=== PATIENT | female | born 1955 | race Caucasian/White ===

== ENCOUNTER 2022-04-25 06:25 | Inpatient (IN) | payer BC ==
[2022-04-25] MEDS ORDERED: Dexamethasone 10 MG/ML VIAL ONE (06:44)
[2022-04-25] MEDS ORDERED: Ondansetron PF 4 MG/2 ML Vial ONE ×2 (06:45→08:52)
[2022-04-25 06:47] LABS: #Eosinphils 0.1 10x3/uL (0.0-0.5); #Monocytes 0.9 10x3/uL (0.0-1.1); #Neutrophils 6.9 10x3/uL (1.5-8.4); %Basophils 0.4 % (0.0-2.0); %Eosinophils 0.7 % (0.0-6.0); %Lymphocytes 15.6 % (18.0-47.0); %Monocytes 9.8 % (0.0-10.0); %Neutrophils 73.2 % (40.0-75.0); Hemoglobin 15.7 g/dL (12.0-15.5); Mean Corpuscular HGB CONC 34.1 g/dL (32.0-36.0); Mean Corpuscular Hemoglobin 26.7 pg (27.0-33.0); Mean Corpuscular Volume 78.1 fl (81.6-98.3); Mean Platelet Volume 9.2 fl (7.4-10.4); Platelet Count 243 10x3/uL (150-450); RBC Distribution Width 15.2 % (11.5-14.5); Red Blood Cell (RBC) Count 5.89 10x6/uL (3.90-5.03); White Blood Cell (WBC) Count 9.4 10x3/uL (3.5-10.5)
[2022-04-25 06:58] LABS: ALT (SGPT) 22 U/L (8-55); AST (SGOT) 24 U/L (5-34); Albumin 4.1 g/dL (3.4-4.8); Alkaline Phosphatase 79 U/L (40-110); Anion Gap 17 mmol/L (10-20); BUN (Urea Nitrogen) 7 mg/dL (9.8-20.1); Bilirubin, Total 0.4 mg/dL (0.2-1.2); Calc. Creatinine Clearance 0 mL/min (70-130); Calcium 9.1 mg/dL (7.8-10.44); Carbon Dioxide 27 mmol/L (23-31); Chloride 86 mmol/L (98-107); Estimated GFR 102; Globulin 2.8 g/dL (2.4-3.5); Glucose 142 mg/dL (80-115); Potassium 4.3 mmol/L (3.5-5.1); Protein, Total 6.9 g/dL (5.8-8.1); Sodium 126 mmol/L (136-145)
[2022-04-25 07:45] LABS: Actual Bicarbonate (HCO3v) 27 mEq/L (22-28); Base Excess -1.1 mEq/L (-2.0 to +3.0); Calcium, Ionized (venous) 1.11 mmol/L (1.16-1.32); Chloride (VBG) 88 mmol/L (98-106); Hemoglobin (Hb) 16.1 g/dL (11.7-16.0); Potassium (VBG) 4.06 mmol/L (3.70-5.30); Puncture Site Other Site; RapidComm Collect By LAB; pH (venous) 7.29 (7.32-7.43)
[2022-04-25] MEDS ORDERED: Albuterol Sulfate 2.5 mg/3 ml Neb ONE (07:52)
[2022-04-25] MEDS ORDERED: Iopamidol 370 76% 100 ML VIAL ONE (08:00)
[2022-04-25 08:08] LABS: SARS-CoV-2 NAA Rapid Test DETECTED (NotDetected)
[2022-04-25] MEDS ORDERED: Promethazine HCl 12.5 MG in Sodium Chloride 0.9% 50 ML IVPB PRN (08:21)
[2022-04-25] MEDS ORDERED: Sodium Chloride 0.9% 1,000 ML IV SCH (08:30)
[2022-04-25] MEDS ORDERED: Acetaminophen 500 MG TAB ONE (08:52)
[2022-04-25] MEDS ORDERED: Dexamethasone 10 MG in Sodium Chloride 0.9% 50 ML IVPB SCH (09:00)
[2022-04-25] MEDS ORDERED: Ventolin HFA Inhaler 60 PUFF INHALER INH PRN (14:29)
[2022-04-25] MEDS ORDERED: Pharmacy to Dose REMDESIVIR IVPB PRN (14:34)
[2022-04-25] MEDS: Ascorbic Acid 500 mg Chewable Tablet PO SCH (14:49)
[2022-04-25] MEDS: cefTRIAXone\\ROCEPHIN 1 GM in Sodium Chloride 0.9% 100 ML IVPB SCH (14:50)
[2022-04-25] MEDS: Cholecalciferol (Vitamin D3) 400 UNITS TAB PO SCH (14:51)
[2022-04-25] MEDS: Enoxaparin Sodium 40 MG/0.4 ML SYRINGE SC SCH (14:52)
[2022-04-25] MEDS: Nicotine 21 MG PATCH TD SCH (14:52)
[2022-04-25] MEDS: Zinc Sulfate 220 MG CAP PO SCH (14:54)
[2022-04-25 15:53] LABS: Anion Gap 14 mmol/L (10-20); BUN (Urea Nitrogen) 9 mg/dL (9.8-20.1); Calc. Creatinine Clearance 110 mL/min (70-130); Calcium 9.1 mg/dL (7.8-10.44); Carbon Dioxide 28 mmol/L (23-31); Chloride 85 mmol/L (98-107); Estimated GFR 101; Glucose 157 mg/dL (80-115); Potassium 4.3 mmol/L (3.5-5.1); Sodium 123 mmol/L (136-145)
[2022-04-25] MEDS: Ondansetron PF 4 MG/2 ML Vial IVP PRN (20:00)
[2022-04-25] MEDS ORDERED: REMDESIVIR 200 MG in Sodium Chloride 0.9% 250 ML 210 ML IV SCH (20:00)
[2022-04-25 20:27] LABS: Anion Gap 15 mmol/L (10-20); BUN (Urea Nitrogen) 9 mg/dL (9.8-20.1); Calc. Creatinine Clearance 119 mL/min (70-130); Calcium 9.2 mg/dL (7.8-10.44); Carbon Dioxide 30 mmol/L (23-31); Chloride 86 mmol/L (98-107); Estimated GFR 103; Glucose 137 mg/dL (80-115); Potassium 4.7 mmol/L (3.5-5.1); Sodium 126 mmol/L (136-145)
[2022-04-25] MEDS: Famotidine/PF 20 mg/2ml Vial SLOW IVP SCH (20:42)
[2022-04-25] MEDS: Doxycycline 100 MG CAP PO SCH (20:42)
[2022-04-25] MEDS: Dexamethasone 20 MG/5 ML VIAL SLOW IVP SCH (20:42)
[2022-04-25 21:53] LABS: Bilirubin Neg (Negative); Blood, Urine Negative (Negative); Clarity Clear (Clear); Glucose, Urine (Dipstick) Normal (Negative); Ketone, Urine Negative (Negative); Leukocyte Negative (Negative); Nitrite Negative (Negative); Protein, Urine (Dipstick) 15 mg/dl (Neg-Trace); Specific Gravity, Urine 1.015 (1.002-1.036); Urobilinogen Normal mg/dL (Less than 2)
[2022-04-25 21:55] LABS: Urine Culture Reflex No No
[2022-04-25 22:15] LABS: Bacteria/HPF 2+ HPF (None Seen); RBC/HPF 0-3 HPF (0-3); WBC/HPF 0-3 HPF (0-3); Yeast-Budding 2+ HPF (None Seen)
[2022-04-26 03:14] LABS: #Monocytes 0.3 10x3/uL (0.0-1.1); #Neutrophils 3.8 10x3/uL (1.5-8.4); %Basophils 0.2 % (0.0-2.0); %Lymphocytes 17.8 % (18.0-47.0); %Monocytes 6.3 % (0.0-10.0); %Neutrophils 75.5 % (40.0-75.0); Hemoglobin 15.4 g/dL (12.0-15.5); Mean Corpuscular HGB CONC 32.8 g/dL (32.0-36.0); Mean Corpuscular Hemoglobin 26.1 pg (27.0-33.0); Mean Corpuscular Volume 79.5 fl (81.6-98.3); Mean Platelet Volume 8.9 fl (7.4-10.4); Platelet Count 242 10x3/uL (150-450); RBC Distribution Width 15.6 % (11.5-14.5); Red Blood Cell (RBC) Count 5.91 10x6/uL (3.90-5.03); White Blood Cell (WBC) Count 5.1 10x3/uL (3.5-10.5)
[2022-04-26 03:41] LABS: ALT (SGPT) 23 U/L (8-55); AST (SGOT) 22 U/L (5-34); Albumin 4.1 g/dL (3.4-4.8); Alkaline Phosphatase 75 U/L (40-110); Anion Gap 16 mmol/L (10-20); BUN (Urea Nitrogen) 8 mg/dL (9.8-20.1); Bilirubin, Total 0.3 mg/dL (0.2-1.2); Calc. Creatinine Clearance 110 mL/min (70-130); Calcium 8.9 mg/dL (7.8-10.44); Carbon Dioxide 29 mmol/L (23-31); Chloride 86 mmol/L (98-107); Estimated GFR 101; Globulin 2.9 g/dL (2.4-3.5); Glucose 117 mg/dL (80-115); Sodium 126 mmol/L (136-145)
[2022-04-26] MEDS: Acetaminophen 325 MG TAB PO PRN ×4 (04:11→20:53)
[2022-04-26] MEDS: Dexamethasone 20 MG/5 ML VIAL SLOW IVP SCH (07:50)
[2022-04-26] MEDS: Famotidine/PF 20 mg/2ml Vial SLOW IVP SCH ×2 (07:51→20:21)
[2022-04-26] MEDS: Doxycycline 100 MG CAP PO SCH ×2 (07:53→20:21)
[2022-04-26] MEDS ORDERED: Sodium Chloride 0.65% Nasal 44 ML BOT EA NARE PRN (09:11)
[2022-04-26] MEDS ORDERED: Labetalol HCl 100 MG/20 ML VIAL SLOW IVP PRN (09:11)
[2022-04-26] MEDS ORDERED: Moisturizing Cream (Eucerin) 113 GM JAR TOP PRN (09:11)
[2022-04-26] MEDS ORDERED: Artificial Tear Sol 15 ML BOT EA EYE PRN (09:11)
[2022-04-26] MEDS ORDERED: hydrALAZINE 20 MG/ML VIAL SLOW IVP PRN (09:11)
[2022-04-26] MEDS ORDERED: Sodium Chloride 0.9% 1,000 ML IV SCH (09:45)
[2022-04-26] MEDS: Lorazepam 0.5 MG TAB PO PRN (12:24)
[2022-04-26 12:28] LABS: Anion Gap 16 mmol/L (10-20); BUN (Urea Nitrogen) 13 mg/dL (9.8-20.1); Calc. Creatinine Clearance 114 mL/min (70-130); Calcium 9.1 mg/dL (7.8-10.44); Carbon Dioxide 28 mmol/L (23-31); Chloride 83 mmol/L (98-107); Estimated GFR 102; Glucose 125 mg/dL (80-115); Magnesium 1.7 mg/dL (1.6-2.6); Potassium 4.8 mmol/L (3.5-5.1); Sodium 122 mmol/L (136-145)
[2022-04-26 12:34] LABS: Phosphorus 2.8 mg/dL (2.3-4.7)
[2022-04-26] MEDS: Simethicone Chewable 80 MG TAB PO PRN (12:35)
[2022-04-26 13:01] LABS: Actual Bicarbonate (HCO3v) 26 mEq/L (22-28); Base Excess 2.2 mEq/L (-2.0 to +3.0); Calcium, Ionized (venous) 0.89 mmol/L (1.16-1.32); Chloride (VBG) 86 mmol/L (98-106); Hemoglobin (Hb) 16.5 g/dL (11.7-16.0); Potassium (VBG) 7.21 mmol/L (3.70-5.30); Puncture Site Other Site; RapidComm Collect By LAB TECH; Sodium 114.3 mmol/L (133-146); pH (venous) 7.45 (7.32-7.43)
[2022-04-26] MEDS: hydrALAZINE 20 MG/ML VIAL SLOW IVP PRN (13:42)
[2022-04-26 14:02] LABS: Actual Bicarbonate (HCO3a) 29.1 mEq/L (22-28); Base Excess (BEa) 1.7 mEq/L (-2.0 to +3.0); CO2 Tension 55.9 mmHg (35.0-45.0); Calcium, Ionized (arterial) 1.13 mmol/L (1.12-1.30); Carboxyhemoglobin (COHb) 0.7 gm% (0.0-3.0); Hemoglobin (Hb) 16.1 g/dL (12.0-16.0); Potassium - ABG Lab 4.6 mmol/L (3.70-5.30); Puncture Site RRA; pH, Arterial 7.33 (7.35-7.45)
[2022-04-26 14:04] LABS: ALV-art Gradient 140.325 mmHg (0-20)
[2022-04-26] MEDS: Cholecalciferol (Vitamin D3) 400 UNITS TAB PO SCH (14:21)
[2022-04-26] MEDS: Ascorbic Acid 500 mg Chewable Tablet PO SCH (14:21)
[2022-04-26] MEDS: Zinc Sulfate 220 MG CAP PO SCH (14:26)
[2022-04-26] MEDS: Nicotine 21 MG PATCH TD SCH (14:26)
[2022-04-26] MEDS: Enoxaparin Sodium 40 MG/0.4 ML SYRINGE SC SCH (14:26)
[2022-04-26] MEDS ORDERED: Furosemide 20 MG/2 ML VIAL SLOW IVP SCH (14:30)
[2022-04-26] MEDS: cefTRIAXone\\ROCEPHIN 1 GM in Sodium Chloride 0.9% 100 ML IVPB SCH (14:32)
[2022-04-26] MEDS: Ventolin HFA Inhaler 60 PUFF INHALER INH SCH ×2 (14:35→19:01)
[2022-04-26 16:14] LABS: Legionella Urinary Ag Negative (Negative)
[2022-04-26] MEDS ORDERED: Amlodipine 5 MG TAB PO SCH (17:00)
[2022-04-26 18:01] LABS: Anion Gap 17 mmol/L (10-20); BUN (Urea Nitrogen) 16 mg/dL (9.8-20.1); Calc. Creatinine Clearance 112 mL/min (70-130); Carbon Dioxide 27 mmol/L (23-31); Chloride 82 mmol/L (98-107); Estimated GFR 102; Glucose 128 mg/dL (80-115); Potassium 4.6 mmol/L (3.5-5.1); Sodium 121 mmol/L (136-145)
[2022-04-26] MEDS: REMDESIVIR 100 MG in Sodium Chloride 0.9% 250 ML 230 ML IV SCH (20:21)
[2022-04-26] MEDS: Ventolin HFA Inhaler 60 PUFF INHALER INH PRN (22:55)
[2022-04-27 00:34] LABS: Anion Gap 14 mmol/L (10-20); BUN (Urea Nitrogen) 23 mg/dL (9.8-20.1); Calc. Creatinine Clearance 116 mL/min (70-130); Calcium 8.9 mg/dL (7.8-10.44); Carbon Dioxide 29 mmol/L (23-31); Chloride 82 mmol/L (98-107); Estimated GFR 103; Glucose 119 mg/dL (80-115); Potassium 4.3 mmol/L (3.5-5.1); Sodium 121 mmol/L (136-145)
[2022-04-27 03:44] LABS: Mean Corpuscular HGB CONC 33.1 g/dL (32.0-36.0); Mean Corpuscular Hemoglobin 26.2 pg (27.0-33.0); Mean Corpuscular Volume 79.2 fl (81.6-98.3); Mean Platelet Volume 9.1 fl (7.4-10.4); Platelet Count 287 10x3/uL (150-450); RBC Distribution Width 14.9 % (11.5-14.5); Red Blood Cell (RBC) Count 5.72 10x6/uL (3.90-5.03); White Blood Cell (WBC) Count 11.4 10x3/uL (3.5-10.5)
[2022-04-27 03:46] LABS: MDiff Complete? YES
[2022-04-27 04:10] LABS: ALT (SGPT) 24 U/L (8-55); AST (SGOT) 32 U/L (5-34); Albumin 3.8 g/dL (3.4-4.8); Alkaline Phosphatase 64 U/L (40-110); Anion Gap 18 mmol/L (10-20); BUN (Urea Nitrogen) 23 mg/dL (9.8-20.1); Bilirubin, Direct 0.1 mg/dL (0.1-0.3); Bilirubin, Total 0.3 mg/dL (0.2-1.2); Calc. Creatinine Clearance 108 mL/min (70-130); Calcium 8.8 mg/dL (7.8-10.44); Carbon Dioxide 26 mmol/L (23-31); Chloride 83 mmol/L (98-107); Estimated GFR 101; Glucose 87 mg/dL (80-115); Potassium 4.8 mmol/L (3.5-5.1); Protein, Total 6.8 g/dL (5.8-8.1); Sodium 122 mmol/L (136-145)
[2022-04-27 04:14] LABS: Platelet Morphology Comment Appears Adequate; RBC Morphology Normal
[2022-04-27 04:19] LABS: Band 7 % (5-11); Lymphocytes 20 % (21-51); Monocytes 16 % (0-10); Neutrophil 57 % (42-75)
[2022-04-27] MEDS: Acetaminophen 325 MG TAB PO PRN (06:19)
[2022-04-27] MEDS: Lorazepam 0.5 MG TAB PO PRN (06:19)
[2022-04-27] MEDS: Ventolin HFA Inhaler 60 PUFF INHALER INH SCH ×4 (06:37→19:22)
[2022-04-27] MEDS: Doxycycline 100 MG CAP PO SCH ×2 (07:56→20:51)
[2022-04-27] MEDS: Amlodipine 5 MG TAB PO SCH (07:56)
[2022-04-27] MEDS: Dexamethasone 20 MG/5 ML VIAL SLOW IVP SCH (07:57)
[2022-04-27] MEDS: Famotidine/PF 20 mg/2ml Vial SLOW IVP SCH ×2 (07:57→20:51)
[2022-04-27] MEDS: hydrALAZINE 20 MG/ML VIAL SLOW IVP PRN (08:48)
[2022-04-27] MEDS: HYDROcodone/Acetaminophen 5/325 mg Tablet PO PRN ×2 (09:48→20:50)
[2022-04-27] MEDS ORDERED: Dexmedetomidine In 0.9 % NaCl 100 ML IVPB SCH (11:00)
[2022-04-27] MEDS ORDERED: Sodium Chloride 3% 500 ML IVPB SCH ×2 (11:30→18:45)
[2022-04-27] MEDS ORDERED: Cefepime 1 GM in Sodium Chloride 0.9% 100 ML IVPB SCH (11:45)
[2022-04-27] MEDS: Cefepime 2 GM in Sodium Chloride 0.9% 100 ML IVPB SCH (12:08)
[2022-04-27 12:58] LABS: Strep pneumo Urine Ag NEGATIVE (NEGATIVE)
[2022-04-27] MEDS: Ascorbic Acid 500 mg Chewable Tablet PO SCH ×2 (15:01→15:35)
[2022-04-27] MEDS: Cholecalciferol (Vitamin D3) 400 UNITS TAB PO SCH ×2 (15:01→15:35)
[2022-04-27] MEDS: Zinc Sulfate 220 MG CAP PO SCH ×2 (15:01→15:35)
[2022-04-27] MEDS: Enoxaparin Sodium 40 MG/0.4 ML SYRINGE SC SCH (15:01)
[2022-04-27] MEDS: Nicotine 21 MG PATCH TD SCH (15:03)
[2022-04-27 15:48] LABS: Anion Gap 17 mmol/L (10-20); BUN (Urea Nitrogen) 22 mg/dL (9.8-20.1); Calc. Creatinine Clearance 122 mL/min (70-130); Calcium 8.8 mg/dL (7.8-10.44); Carbon Dioxide 25 mmol/L (23-31); Chloride 83 mmol/L (98-107); Estimated GFR 103; Glucose 121 mg/dL (80-115); Potassium 4.9 mmol/L (3.5-5.1); Sodium 120 mmol/L (136-145)
[2022-04-27 18:10] LABS: Anion Gap 24 mmol/L (10-20); BUN (Urea Nitrogen) 23 mg/dL (9.8-20.1); Calc. Creatinine Clearance 113 mL/min (70-130); Calcium 8.8 mg/dL (7.8-10.44); Carbon Dioxide 14 mmol/L (23-31); Chloride 86 mmol/L (98-107); Estimated GFR 101; Glucose 86 mg/dL (80-115)
[2022-04-27 18:13] LABS: Sodium 118 mmol/L (136-145)
[2022-04-27] MEDS: REMDESIVIR 100 MG in Sodium Chloride 0.9% 250 ML 230 ML IV SCH (20:50)
[2022-04-27] MEDS: Atorvastatin Calcium 10 MG TAB PO SCH (20:50)
[2022-04-27 22:00] LABS: Anion Gap 18 mmol/L (10-20); BUN (Urea Nitrogen) 21 mg/dL (9.8-20.1); Calc. Creatinine Clearance 117 mL/min (70-130); Calcium 8.8 mg/dL (7.8-10.44); Carbon Dioxide 27 mmol/L (23-31); Chloride 85 mmol/L (98-107); Estimated GFR 102; Glucose 82 mg/dL (80-115); Potassium 4.5 mmol/L (3.5-5.1); Sodium 125 mmol/L (136-145)
[2022-04-28] MEDS ORDERED: Sodium Chloride 0.9% 100 ML ONE (00:03)
[2022-04-28] MEDS ORDERED: Cefepime 2 GM VIAL ONE (00:03)
[2022-04-28] MEDS: Cefepime 2 GM in Sodium Chloride 0.9% 100 ML IVPB SCH ×2 (00:11→11:04)
[2022-04-28 03:42] LABS: Actual Bicarbonate (HCO3v) 29 mEq/L (22-28); Calcium, Ionized (venous) 1.01 mmol/L (1.16-1.32); Chloride (VBG) 90 mmol/L (98-106); Critical Notified Whom: ZOVAN; Potassium (VBG) 4.47 mmol/L (3.70-5.30); Puncture Site Other Site; Sodium 122.1 mmol/L (133-146); pH (venous) 7.44 (7.32-7.43)
[2022-04-28 03:43] LABS: Hemoglobin 15.1 g/dL (12.0-15.5); Mean Corpuscular Hemoglobin 26.1 pg (27.0-33.0); Mean Corpuscular Volume 79.2 fl (81.6-98.3); RBC Distribution Width 14.8 % (11.5-14.5); Red Blood Cell (RBC) Count 5.78 10x6/uL (3.90-5.03); White Blood Cell (WBC) Count 9.2 10x3/uL (3.5-10.5)
[2022-04-28 03:44] LABS: Mean Platelet Volume 8.9 fl (7.4-10.4); Platelet Count 305 10x3/uL (150-450)
[2022-04-28 03:47] LABS: MDiff Complete? YES; Manual Diff?? YES
[2022-04-28 04:05] LABS: CRP (Inflammatory) Less than 0.50 mg/dL (= or < 0.5); Phosphorus 2.8 mg/dL (2.3-4.7)
[2022-04-28 04:09] LABS: ALT (SGPT) 22 U/L (8-55); AST (SGOT) 25 U/L (5-34); Albumin 3.7 g/dL (3.4-4.8); Alkaline Phosphatase 66 U/L (40-110); Anion Gap 15 mmol/L (10-20); BUN (Urea Nitrogen) 23 mg/dL (9.8-20.1); Bilirubin, Direct 0.2 mg/dL (0.1-0.3); Bilirubin, Total 0.5 mg/dL (0.2-1.2); Calc. Creatinine Clearance 117 mL/min (70-130); Calcium 8.6 mg/dL (7.8-10.44); Carbon Dioxide 27 mmol/L (23-31); Chloride 89 mmol/L (98-107); Estimated GFR 102; Globulin 2.3 g/dL (2.4-3.5); Glucose 90 mg/dL (80-115); Potassium 4.8 mmol/L (3.5-5.1); Sodium 126 mmol/L (136-145)
[2022-04-28 04:12] LABS: Band 2 % (5-11); Lymphocytes 13 % (21-51); Monocytes 14 % (0-10); Neutrophil 64 % (42-75); Reactive Lymphocytes 6 % (0-10)
[2022-04-28 04:14] LABS: Platelet Morphology Comment Appears Adequate
[2022-04-28] MEDS: HYDROcodone/Acetaminophen 5/325 mg Tablet PO PRN ×3 (05:16→16:18)
[2022-04-28] MEDS: Ventolin HFA Inhaler 60 PUFF INHALER INH SCH ×4 (06:30→20:14)
[2022-04-28] MEDS: Amlodipine 5 MG TAB PO SCH (08:20)
[2022-04-28] MEDS: Famotidine/PF 20 mg/2ml Vial SLOW IVP SCH ×2 (08:21→20:40)
[2022-04-28] MEDS: Dexamethasone 20 MG/5 ML VIAL SLOW IVP SCH (08:21)
[2022-04-28] MEDS: Doxycycline 100 MG CAP PO SCH ×2 (09:01→20:39)
[2022-04-28] MEDS: Simethicone Chewable 80 MG TAB PO PRN (11:04)
[2022-04-28] MEDS: Lorazepam 1 MG TAB PO PRN (11:04)
[2022-04-28] MEDS: Cholecalciferol (Vitamin D3) 400 UNITS TAB PO SCH (14:48)
[2022-04-28] MEDS: Enoxaparin Sodium 40 MG/0.4 ML SYRINGE SC SCH (14:48)
[2022-04-28] MEDS: Ascorbic Acid 500 mg Chewable Tablet PO SCH (14:48)
[2022-04-28] MEDS: Zinc Sulfate 220 MG CAP PO SCH (14:48)
[2022-04-28] MEDS: Nicotine 21 MG PATCH TD SCH (14:50)
[2022-04-28] MEDS: REMDESIVIR 100 MG in Sodium Chloride 0.9% 250 ML 230 ML IV SCH (20:39)
[2022-04-28] MEDS: Atorvastatin Calcium 10 MG TAB PO SCH (20:39)
[2022-04-29] MEDS: Cefepime 2 GM in Sodium Chloride 0.9% 100 ML IVPB SCH ×2 (00:12→11:30)
[2022-04-29] MEDS: Lorazepam 1 MG TAB PO PRN ×4 (03:34→20:20)
[2022-04-29] MEDS: HYDROcodone/Acetaminophen 5/325 mg Tablet PO PRN ×3 (03:34→20:20)
[2022-04-29] MEDS: Simethicone Chewable 80 MG TAB PO PRN ×2 (04:13→08:48)
[2022-04-29 04:31] LABS: Hemoglobin 15.6 g/dL (12.0-15.5); Mean Corpuscular HGB CONC 32.4 g/dL (32.0-36.0); Mean Corpuscular Hemoglobin 26.1 pg (27.0-33.0); Mean Corpuscular Volume 80.6 fl (81.6-98.3); Mean Platelet Volume 8.8 fl (7.4-10.4); Platelet Count 330 10x3/uL (150-450); RBC Distribution Width 15.1 % (11.5-14.5); Red Blood Cell (RBC) Count 5.97 10x6/uL (3.90-5.03); White Blood Cell (WBC) Count 7.9 10x3/uL (3.5-10.5)
[2022-04-29 04:32] LABS: MDiff Complete? YES; Manual Diff?? YES
[2022-04-29 04:42] LABS: Actual Bicarbonate (HCO3v) 31 mEq/L (22-28); Base Excess 4.6 mEq/L (-2.0 to +3.0); Calcium, Ionized (venous) 1.08 mmol/L (1.16-1.32); Chloride (VBG) 92 mmol/L (98-106); Hemoglobin (Hb) 16.3 g/dL (11.7-16.0); Potassium (VBG) 3.98 mmol/L (3.70-5.30); Puncture Site Other Site; RapidComm Collect By LAB; Sodium 128.1 mmol/L (133-146); pH (venous) 7.39 (7.32-7.43)
[2022-04-29 04:50] LABS: ALT (SGPT) 22 U/L (8-55); AST (SGOT) 19 U/L (5-34); Albumin 3.7 g/dL (3.4-4.8); Alkaline Phosphatase 69 U/L (40-110); Anion Gap 13 mmol/L (10-20); BUN (Urea Nitrogen) 23 mg/dL (9.8-20.1); Bilirubin, Direct 0.3 mg/dL (0.1-0.3); Bilirubin, Total 0.6 mg/dL (0.2-1.2); Calc. Creatinine Clearance 104 mL/min (70-130); Calcium 8.8 mg/dL (7.8-10.44); Carbon Dioxide 30 mmol/L (23-31); Chloride 92 mmol/L (98-107); Estimated GFR 99; Globulin 2.3 g/dL (2.4-3.5); Glucose 103 mg/dL (80-115); Magnesium 2.1 mg/dL (1.6-2.6); Potassium 4.3 mmol/L (3.5-5.1); Sodium 131 mmol/L (136-145)
[2022-04-29 04:53] LABS: CRP (Inflammatory) Less than 0.50 mg/dL (= or < 0.5); Phosphorus 2.7 mg/dL (2.3-4.7)
[2022-04-29 05:08] LABS: Lymphocytes 21 % (21-51); Monocytes 21 % (0-10); Neutrophil 53 % (42-75); Reactive Lymphocytes 5 % (0-10)
[2022-04-29 05:09] LABS: Anisocytosis SLIGHT = 6-15 cells (100X) (0-5/hpf); Macrocytosis SLIGHT = 6-15 cells (100X) (0-5/hpf); Microcytosis SLIGHT = 6-15 cells (100X) (0-5/hpf); Platelet Morphology Comment Appears Adequate
[2022-04-29] MEDS: Ventolin HFA Inhaler 60 PUFF INHALER INH SCH ×4 (07:51→19:09)
[2022-04-29] MEDS: Doxycycline 100 MG CAP PO SCH ×2 (08:48→20:20)
[2022-04-29] MEDS: Amlodipine 5 MG TAB PO SCH (08:48)
[2022-04-29] MEDS: Dexamethasone 20 MG/5 ML VIAL SLOW IVP SCH (08:50)
[2022-04-29] MEDS: Famotidine/PF 20 mg/2ml Vial SLOW IVP SCH ×2 (08:50→20:18)
[2022-04-29] MEDS: Enoxaparin Sodium 40 MG/0.4 ML SYRINGE SC SCH (14:21)
[2022-04-29] MEDS: Nicotine 21 MG PATCH TD SCH (14:21)
[2022-04-29] MEDS: Ascorbic Acid 500 mg Chewable Tablet PO SCH (14:22)
[2022-04-29] MEDS: Cholecalciferol (Vitamin D3) 400 UNITS TAB PO SCH (14:22)
[2022-04-29] MEDS: Zinc Sulfate 220 MG CAP PO SCH (14:22)
[2022-04-29] MEDS: REMDESIVIR 100 MG in Sodium Chloride 0.9% 250 ML 230 ML IV SCH (20:19)
[2022-04-29] MEDS: Atorvastatin Calcium 10 MG TAB PO SCH (20:20)
[2022-04-30] MEDS: Cefepime 2 GM in Sodium Chloride 0.9% 100 ML IVPB SCH ×2 (00:14→12:14)
[2022-04-30 03:50] LABS: Actual Bicarbonate (HCO3v) 33 mEq/L (22-28); Base Excess 6.2 mEq/L (-2.0 to +3.0); Calcium, Ionized (venous) 1.06 mmol/L (1.16-1.32); Chloride (VBG) 93 mmol/L (98-106); Potassium (VBG) 4.66 mmol/L (3.70-5.30); Puncture Site Other Site; RapidComm Collect By CSUC. CNC; Sodium 127.1 mmol/L (133-146)
[2022-04-30 04:16] LABS: Hemoglobin 15.2 g/dL (12.0-15.5); Mean Corpuscular HGB CONC 32.8 g/dL (32.0-36.0); Mean Corpuscular Hemoglobin 26.1 pg (27.0-33.0); Mean Corpuscular Volume 79.7 fl (81.6-98.3); Mean Platelet Volume 8.4 fl (7.4-10.4); Platelet Count 344 10x3/uL (150-450); RBC Distribution Width 15.3 % (11.5-14.5); Red Blood Cell (RBC) Count 5.82 10x6/uL (3.90-5.03); White Blood Cell (WBC) Count 7.6 10x3/uL (3.5-10.5)
[2022-04-30 04:42] LABS: ALT (SGPT) 19 U/L (8-55); AST (SGOT) 16 U/L (5-34); Albumin 3.6 g/dL (3.4-4.8); Alkaline Phosphatase 64 U/L (40-110); Anion Gap 18 mmol/L (10-20); BUN (Urea Nitrogen) 24 mg/dL (9.8-20.1); Bilirubin, Total 0.6 mg/dL (0.2-1.2); Calc. Creatinine Clearance 115 mL/min (70-130); Calcium 8.7 mg/dL (7.8-10.44); Carbon Dioxide 27 mmol/L (23-31); Chloride 92 mmol/L (98-107); Estimated GFR 102; Globulin 2.4 g/dL (2.4-3.5); Glucose 91 mg/dL (80-115); Magnesium 2.1 mg/dL (1.6-2.6); Potassium 4.8 mmol/L (3.5-5.1); Sodium 132 mmol/L (136-145)
[2022-04-30 04:46] LABS: CRP (Inflammatory) Less than 0.50 mg/dL (= or < 0.5); Phosphorus 3.1 mg/dL (2.3-4.7)
[2022-04-30] MEDS: Lorazepam 1 MG TAB PO PRN ×4 (04:53→21:48)
[2022-04-30] MEDS: HYDROcodone/Acetaminophen 5/325 mg Tablet PO PRN ×4 (04:53→21:47)
[2022-04-30 06:11] LABS: MDiff Complete? YES; Manual Diff?? YES
[2022-04-30 07:14] LABS: Band 1 % (5-11); Lymphocytes 22 % (21-51); Monocytes 31 % (0-10); Neutrophil 40 % (42-75); Reactive Lymphocytes 6 % (0-10)
[2022-04-30] MEDS: Ventolin HFA Inhaler 60 PUFF INHALER INH SCH ×4 (07:14→19:48)
[2022-04-30 07:16] LABS: Anisocytosis SLIGHT = 6-15 cells (100X) (0-5/hpf); Platelet Morphology Comment Appears Adequate
[2022-04-30] MEDS: Dexamethasone 20 MG/5 ML VIAL SLOW IVP SCH (09:28)
[2022-04-30] MEDS: Doxycycline 100 MG CAP PO SCH ×2 (09:29→20:55)
[2022-04-30] MEDS: Famotidine/PF 20 mg/2ml Vial SLOW IVP SCH ×2 (09:29→20:54)
[2022-04-30] MEDS: Amlodipine 5 MG TAB PO SCH (09:29)
[2022-04-30] MEDS: Simethicone Chewable 80 MG TAB PO PRN (10:11)
[2022-04-30] MEDS: Enoxaparin Sodium 40 MG/0.4 ML SYRINGE SC SCH (15:20)
[2022-04-30] MEDS: Zinc Sulfate 220 MG CAP PO SCH (15:20)
[2022-04-30] MEDS: Ascorbic Acid 500 mg Chewable Tablet PO SCH (15:20)
[2022-04-30] MEDS: Cholecalciferol (Vitamin D3) 400 UNITS TAB PO SCH (15:20)
[2022-04-30] MEDS: Nicotine 21 MG PATCH TD SCH (15:22)
[2022-04-30 19:10] LABS: Mycoplasma pneumoniae IgG AB 562 U/mL (0-99); Mycoplasma pneumoniae IgM AB Less than 770 U/mL (0-769)
[2022-04-30] MEDS: Atorvastatin Calcium 10 MG TAB PO SCH (20:55)
[2022-05-01] MEDS: Cefepime 2 GM in Sodium Chloride 0.9% 100 ML IVPB SCH (00:53)
[2022-05-01 05:23] LABS: Hemoglobin 14.8 g/dL (12.0-15.5); Mean Corpuscular HGB CONC 33.6 g/dL (32.0-36.0); Mean Corpuscular Hemoglobin 26.9 pg (27.0-33.0); Mean Corpuscular Volume 79.9 fl (81.6-98.3); Platelet Count 368 10x3/uL (150-450); RBC Distribution Width 15.2 % (11.5-14.5); Red Blood Cell (RBC) Count 5.51 10x6/uL (3.90-5.03); White Blood Cell (WBC) Count 8.7 10x3/uL (3.5-10.5)
[2022-05-01 05:31] LABS: Actual Bicarbonate (HCO3v) 29 mEq/L (22-28); Base Excess 3.3 mEq/L (-2.0 to +3.0); Calcium, Ionized (venous) 1.07 mmol/L (1.16-1.32); Chloride (VBG) 93 mmol/L (98-106); Critical Notified By: CP.PH; Hemoglobin (Hb) 15.6 g/dL (11.7-16.0); Potassium (VBG) 5.44 mmol/L (3.70-5.30); Puncture Site Other Site; Sodium 127.5 mmol/L (133-146); pH (venous) 7.39 (7.32-7.43)
[2022-05-01] MEDS: HYDROcodone/Acetaminophen 5/325 mg Tablet PO PRN ×4 (06:10→22:08)
[2022-05-01] MEDS: Lorazepam 1 MG TAB PO PRN ×4 (06:11→22:08)
[2022-05-01 06:22] LABS: MDiff Complete? YES; Platelet Morphology Comment Appears Adequate
[2022-05-01 06:24] LABS: Anisocytosis SLIGHT = 6-15 cells (100X) (0-5/hpf); Microcytosis SLIGHT = 6-15 cells (100X) (0-5/hpf)
[2022-05-01 06:27] LABS: Lymphocytes 23 % (21-51); Monocytes 19 % (0-10); Neutrophil 54 % (42-75); Reactive Lymphocytes 4 % (0-10)
[2022-05-01 07:58] LABS: ALT (SGPT) 19 U/L (8-55); AST (SGOT) 12 U/L (5-34); Albumin 3.7 g/dL (3.4-4.8); Alkaline Phosphatase 63 U/L (40-110); Anion Gap 14 mmol/L (10-20); BUN (Urea Nitrogen) 22 mg/dL (9.8-20.1); Bilirubin, Total 0.8 mg/dL (0.2-1.2); CRP (Inflammatory) Less than 0.50 mg/dL (= or < 0.5); Calc. Creatinine Clearance 106 mL/min (70-130); Carbon Dioxide 32 mmol/L (23-31); Chloride 91 mmol/L (98-107); Estimated GFR 100; Globulin 2.4 g/dL (2.4-3.5); Glucose 125 mg/dL (80-115); Phosphorus 3.4 mg/dL (2.3-4.7); Potassium 4.4 mmol/L (3.5-5.1); Protein, Total 6.1 g/dL (5.8-8.1); Sodium 133 mmol/L (136-145)
[2022-05-01] MEDS: Ventolin HFA Inhaler 60 PUFF INHALER INH SCH ×4 (08:39→19:40)
[2022-05-01] MEDS: Dexamethasone 20 MG/5 ML VIAL SLOW IVP SCH (08:56)
[2022-05-01] MEDS: Famotidine/PF 20 mg/2ml Vial SLOW IVP SCH ×2 (08:57→22:09)
[2022-05-01] MEDS: Amlodipine 5 MG TAB PO SCH (08:58)
[2022-05-01] MEDS: Doxycycline 100 MG CAP PO SCH ×2 (08:58→22:08)
[2022-05-01] MEDS: Simethicone Chewable 80 MG TAB PO PRN ×2 (09:23→14:08)
[2022-05-01] MEDS: hydrALAZINE 20 MG/ML VIAL SLOW IVP PRN (14:08)
[2022-05-01] MEDS: Cholecalciferol (Vitamin D3) 400 UNITS TAB PO SCH (15:47)
[2022-05-01] MEDS: Zinc Sulfate 220 MG CAP PO SCH (15:47)
[2022-05-01] MEDS: Enoxaparin Sodium 40 MG/0.4 ML SYRINGE SC SCH (15:47)
[2022-05-01] MEDS: Ascorbic Acid 500 mg Chewable Tablet PO SCH (15:47)
[2022-05-01] MEDS: Nicotine 21 MG PATCH TD SCH (15:47)
[2022-05-01] MEDS: Atorvastatin Calcium 10 MG TAB PO SCH (22:08)
[2022-05-02 05:33] LABS: Actual Bicarbonate (HCO3v) 28 mEq/L (22-28); Base Excess 3.5 mEq/L (-2.0 to +3.0); Calcium, Ionized (venous) 0.99 mmol/L (1.16-1.32); Chloride (VBG) 94 mmol/L (98-106); Critical Notified By: CP.PH; Hemoglobin (Hb) 16.1 g/dL (11.7-16.0); Potassium (VBG) 4.81 mmol/L (3.70-5.30); Puncture Site Other Site; Sodium 127.9 mmol/L (133-146); pH (venous) 7.43 (7.32-7.43)
[2022-05-02 05:38] VITALS: BMI 26.3
[2022-05-02 05:39] LABS: CRP (Inflammatory) Less than 0.50 mg/dL (= or < 0.5); Magnesium 2.1 mg/dL (1.6-2.6)
[2022-05-02] MEDS: Ventolin HFA Inhaler 60 PUFF INHALER INH SCH ×4 (06:55→19:30)
[2022-05-02] MEDS: Amlodipine 5 MG TAB PO SCH (07:55)
[2022-05-02] MEDS: Doxycycline 100 MG CAP PO SCH ×2 (07:55→22:00)
[2022-05-02] MEDS: Dexamethasone 20 MG/5 ML VIAL SLOW IVP SCH (07:56)
[2022-05-02] MEDS: Famotidine/PF 20 mg/2ml Vial SLOW IVP SCH (07:57)
[2022-05-02] MEDS: Lorazepam 1 MG TAB PO PRN ×2 (07:59→13:08)
[2022-05-02] MEDS: HYDROcodone/Acetaminophen 5/325 mg Tablet PO PRN (07:59)
[2022-05-02] MEDS: Ondansetron PF 4 MG/2 ML Vial IVP PRN (09:11)
[2022-05-02] MEDS: Enoxaparin Sodium 40 MG/0.4 ML SYRINGE SC SCH (14:48)
[2022-05-02] MEDS: Nicotine 21 MG PATCH TD SCH (14:48)
[2022-05-02] MEDS: Zinc Sulfate 220 MG CAP PO SCH (14:48)
[2022-05-02] MEDS: Ascorbic Acid 500 mg Chewable Tablet PO SCH (14:48)
[2022-05-02] MEDS: Cholecalciferol (Vitamin D3) 400 UNITS TAB PO SCH (14:48)
[2022-05-02] MEDS: FLUoxetine HCl 20 MG CAP PO SCH (21:59)
[2022-05-02] MEDS: Famotidine 20 MG TAB PO SCH (21:59)
[2022-05-02] MEDS: Atorvastatin Calcium 10 MG TAB PO SCH (21:59)
[2022-05-03] MEDS: Ventolin HFA Inhaler 60 PUFF INHALER INH PRN (04:45)
[2022-05-03] MEDS: Acetaminophen 325 MG TAB PO PRN (04:45)
[2022-05-03] MEDS: Lorazepam 1 MG TAB PO PRN ×2 (05:00→22:23)
[2022-05-03 06:03] LABS: Anion Gap 13 mmol/L (10-20); BUN (Urea Nitrogen) 22 mg/dL (9.8-20.1); CRP (Inflammatory) Less than 0.50 mg/dL (= or < 0.5); Calc. Creatinine Clearance 123 mL/min (70-130); Calcium 9.2 mg/dL (7.8-10.44); Carbon Dioxide 35 mmol/L (23-31); Chloride 91 mmol/L (98-107); Estimated GFR 104; Glucose 66 mg/dL (80-115); Potassium 4.6 mmol/L (3.5-5.1); Sodium 134 mmol/L (136-145)
[2022-05-03] MEDS: Ventolin HFA Inhaler 60 PUFF INHALER INH SCH ×4 (07:08→20:00)
[2022-05-03] MEDS: Dexamethasone 20 MG/5 ML VIAL SLOW IVP SCH (09:05)
[2022-05-03] MEDS: Amlodipine 5 MG TAB PO SCH (09:05)
[2022-05-03] MEDS: Doxycycline 100 MG CAP PO SCH ×2 (09:06→21:57)
[2022-05-03] MEDS: Famotidine 20 MG TAB PO SCH ×2 (09:06→21:56)
[2022-05-03] MEDS: HYDROcodone/Acetaminophen 5/325 mg Tablet PO PRN (09:21)
[2022-05-03] MEDS: Nicotine 21 MG PATCH TD SCH (14:32)
[2022-05-03] MEDS: Cholecalciferol (Vitamin D3) 400 UNITS TAB PO SCH (14:33)
[2022-05-03] MEDS: Enoxaparin Sodium 40 MG/0.4 ML SYRINGE SC SCH (14:33)
[2022-05-03] MEDS: Zinc Sulfate 220 MG CAP PO SCH (14:33)
[2022-05-03] MEDS: Ascorbic Acid 500 mg Chewable Tablet PO SCH (14:33)
[2022-05-03] MEDS: Simethicone Chewable 80 MG TAB PO PRN (15:09)
[2022-05-03] MEDS: Ipratropium Oral Inhaler INH PRN (20:00)
[2022-05-03] MEDS: Atorvastatin Calcium 10 MG TAB PO SCH (21:57)
[2022-05-03] MEDS: FLUoxetine HCl 20 MG CAP PO SCH (21:57)
[2022-05-04 05:57] LABS: Anion Gap 15 mmol/L (10-20); BUN (Urea Nitrogen) 20 mg/dL (9.8-20.1); Calc. Creatinine Clearance 119 mL/min (70-130); Calcium 9.5 mg/dL (7.8-10.44); Carbon Dioxide 34 mmol/L (23-31); Chloride 90 mmol/L (98-107); Estimated GFR 103; Glucose 63 mg/dL (80-115); Potassium 4.4 mmol/L (3.5-5.1); Sodium 135 mmol/L (136-145)
[2022-05-04] MEDS: Ventolin HFA Inhaler 60 PUFF INHALER INH SCH ×4 (07:08→19:55)
[2022-05-04] MEDS: Doxycycline 100 MG CAP PO SCH ×2 (09:12→20:54)
[2022-05-04] MEDS: Famotidine 20 MG TAB PO SCH ×2 (09:12→20:54)
[2022-05-04] MEDS: Dexamethasone 20 MG/5 ML VIAL SLOW IVP SCH (09:12)
[2022-05-04] MEDS: Amlodipine 5 MG TAB PO SCH (09:13)
[2022-05-04] MEDS: Simethicone Chewable 80 MG TAB PO PRN ×2 (12:07→20:54)
[2022-05-04] MEDS: HYDROcodone/Acetaminophen 5/325 mg Tablet PO PRN (12:11)
[2022-05-04] MEDS: Nicotine 21 MG PATCH TD SCH (15:00)
[2022-05-04] MEDS: Enoxaparin Sodium 40 MG/0.4 ML SYRINGE SC SCH (15:00)
[2022-05-04] MEDS: Zinc Sulfate 220 MG CAP PO SCH (15:01)
[2022-05-04] MEDS: Ascorbic Acid 500 mg Chewable Tablet PO SCH (15:01)
[2022-05-04] MEDS: Cholecalciferol (Vitamin D3) 400 UNITS TAB PO SCH (15:01)
[2022-05-04] MEDS: Ipratropium Oral Inhaler INH PRN (19:55)
[2022-05-04] MEDS: FLUoxetine HCl 20 MG CAP PO SCH (20:54)
[2022-05-04] MEDS: Atorvastatin Calcium 10 MG TAB PO SCH (20:54)
[2022-05-04] MEDS: Lorazepam 1 MG TAB PO PRN (21:14)
[2022-05-04] MEDS ORDERED: Docusate 100 MG CAP PO SCH (22:00)
[2022-05-05 05:24] LABS: Anion Gap 11 mmol/L (10-20); BUN (Urea Nitrogen) 20 mg/dL (9.8-20.1); Calc. Creatinine Clearance 121 mL/min (70-130); Carbon Dioxide 35 mmol/L (23-31); Chloride 92 mmol/L (98-107); Estimated GFR 104; Glucose 82 mg/dL (80-115); Potassium 4.5 mmol/L (3.5-5.1); Sodium 133 mmol/L (136-145)
[2022-05-05] MEDS: Ventolin HFA Inhaler 60 PUFF INHALER INH PRN ×2 (07:45→11:20)
[2022-05-05] MEDS: Ventolin HFA Inhaler 60 PUFF INHALER INH SCH ×2 (07:45→11:20)
[2022-05-05] MEDS ORDERED: Docusate 100 MG CAP PO SCH (09:00)
[2022-05-05] MEDS ORDERED: Polyethylene Glycol 3350 17 GM Packet PO SCH (09:00)
[2022-05-05] MEDS: Famotidine 20 MG TAB PO SCH (10:08)
[2022-05-05] MEDS: Amlodipine 5 MG TAB PO SCH (10:08)
[2022-05-05] MEDS: HYDROcodone/Acetaminophen 5/325 mg Tablet PO PRN (10:09)
[2022-05-05] MEDS: Doxycycline 100 MG CAP PO SCH (10:10)
[2022-05-05] MEDS: Dexamethasone 20 MG/5 ML VIAL SLOW IVP SCH (10:10)
[2022-05-05] MEDS: Ipratropium Oral Inhaler INH PRN (11:20)
[2022-05-05 12:45] VITALS: TEMP 97.1
[2022-05-05 13:57] VITALS: BP 129/78
== END 2022-05-05 15:22 | disposition home or self-care (01) | DRG 177 ==
LOC: CSHERS 06:25 → CSHICU 12:59 → CSHTELE 05-02 18:05
PROVIDERS: ADMIT Family Medicine; ATTEND Internal Medicine
PROC: 8E0ZXY6 Isolation (ICD-10-PCS; principal; 2022-04-25)
PROC: 5A0935A Assistance with Respiratory Ventilation, Less than 24 Consecutive Hours, High Flow/Velocity Cannula (ICD-10-PCS; 2022-04-25)
PROC: XW033E5 Introduction of Remdesivir Anti-infective into Peripheral Vein, Percutaneous Approach, New Technology Group 5 (ICD-10-PCS; 2022-04-26)
PROC: 5A09557 Assistance with Respiratory Ventilation, Greater than 96 Consecutive Hours, Continuous Positive Airway Pressure (ICD-10-PCS; 2022-04-26)
DX: U07.1 COVID-19 (principal); J12.82 Pneumonia due to coronavirus disease 2019; J96.01 Acute respiratory failure with hypoxia; E87.0 Hyperosmolality and hypernatremia; F17.210 Nicotine dependence, cigarettes, uncomplicated; E86.1 Hypovolemia; I12.9 Hypertensive chronic kidney disease with stage 1 through stage 4 chronic kidney disease, or unspecified chronic kidney disease; N18.1 Chronic kidney disease, stage 1; D63.1 Anemia in chronic kidney disease; J43.2 Centrilobular emphysema; F41.9 Anxiety disorder, unspecified; J45.909 Unspecified asthma, uncomplicated; Z28.310 Unvaccinated for COVID-19; Z71.6 Tobacco abuse counseling
CPT/HCPCS: 36415; 36600; 71045; 71275; 80048; 80053; 80076; 81001; 82805; 83735; 83880; 83930; 83935; 84100; 84145; 84443; 84484; 85025; 86140; 87040; 87449; 87899; 93005; 93010; 94640; 94660; 94664; 94760; 96374; 96375; 96376; J0248; J0360; J0692; J0696; J1100; J1650; J1940; J2405; J2550; J3490; J7050; J7131; J7611; Q9967; S0028

== ENCOUNTER 2022-11-10 12:49 | Inpatient (IN) | payer BC, MEDICARE, SELFPAY ==
[2022-11-10] MEDS ORDERED: methylPREDNISolone Sod Succ/PF 125 MG/2 ML VIAL ONE (13:17)
[2022-11-10] MEDS ORDERED: Magnesium 2 GM/50 ML BAG (IN WATER) ONE (13:18)
[2022-11-10] MEDS ORDERED: Ipratropium/Albuterol 3 ML NEB ONE ×2 (13:18→19:54)
[2022-11-10 13:43] LABS: #Monocytes 0.4 10x3/uL (0.0-1.1); #Neutrophils 8.2 10x3/uL (1.5-8.4); %Basophils 0.4 % (0.0-2.0); %Eosinophils 0.1 % (0.0-6.0); %Lymphocytes 9.9 % (18.0-47.0); %Monocytes 3.7 % (0.0-10.0); %Neutrophils 85.6 % (40.0-75.0); Mean Corpuscular HGB CONC 33.6 g/dL (32.0-36.0); Mean Corpuscular Hemoglobin 26.8 pg (27.0-33.0); Mean Corpuscular Volume 79.8 fl (81.6-98.3); Mean Platelet Volume 8.8 fl (7.4-10.4); Platelet Count 302 10x3/uL (150-450); RBC Distribution Width 14.7 % (11.5-14.5); Red Blood Cell (RBC) Count 5.59 10x6/uL (3.90-5.03); White Blood Cell (WBC) Count 9.5 10x3/uL (3.5-10.5)
[2022-11-10 13:57] LABS: ALT (SGPT) 11 U/L (8-55); AST (SGOT) 19 U/L (5-34); Albumin 4.3 g/dL (3.4-4.8); Alkaline Phosphatase 78 U/L (40-110); Anion Gap 15 mmol/L (10-20); BUN (Urea Nitrogen) 10 mg/dL (9.8-20.1); Bilirubin, Total 0.5 mg/dL (0.2-1.2); Calc. Creatinine Clearance 0 mL/min (70-130); Calcium 8.8 mg/dL (7.8-10.44); Carbon Dioxide 24 mmol/L (23-31); Chloride 93 mmol/L (98-107); Estimated GFR 100; Globulin 2.4 g/dL (2.4-3.5); Glucose 128 mg/dL (80-115); Protein, Total 6.7 g/dL (5.8-8.1); Sodium 128 mmol/L (136-145)
[2022-11-10] MEDS ORDERED: Ondansetron PF 4 MG/2 ML Vial ONE ×2 (14:07→21:11)
[2022-11-10 14:29] LABS: SARS-CoV-2 NAA Rapid Test Not Detected (NotDetected)
[2022-11-10] MEDS ORDERED: Ondansetron PF 4 MG/2 ML Vial IVP PRN (15:43)
[2022-11-10] MEDS ORDERED: Ondansetron ODT 4 MG TAB PO PRN (15:43)
[2022-11-10] MEDS ORDERED: Acetaminophen 650 MG Suppository PR PRN (15:43)
[2022-11-10] MEDS ORDERED: cefTRIAXone\\ROCEPHIN 1 GM in Sodium Chloride 0.9% 100 ML IVPB SCH (15:45)
[2022-11-10] MEDS ORDERED: Azithromycin 500 MG in Sodium Chloride 0.9% 250 ML 250 ML IVPB SCH ×2 (15:45→19:30)
[2022-11-10 16:42] LABS: Sodium 128 mmol/L (136-145)
[2022-11-10 16:55] LABS: Troponin I Less than 0.010 ng/mL (< 0.028)
[2022-11-10] MEDS: Ipratropium/Albuterol 3 ML NEB NEB SCH (19:50)
[2022-11-10 19:51] LABS: Troponin I Less than 0.010 ng/mL (< 0.028)
[2022-11-10] MEDS ORDERED: Acetaminophen 325 MG TAB ONE (20:53)
[2022-11-10] MEDS ORDERED: methylPREDNISolone Sod Succ 40 MG VIAL ONE (20:54)
[2022-11-10] MEDS ORDERED: cefTRIAXone\\ROCEPHIN 1 GM VIAL ONE (20:55)
[2022-11-10] MEDS ORDERED: Azithromycin 500 MG VIAL ONE (20:56)
[2022-11-10] MEDS: cefTRIAXone\\ROCEPHIN 1 GM in Sodium Chloride 0.9% 100 ML IVPB SCH (21:06)
[2022-11-10] MEDS: methylPREDNISolone Sod Succ 40 MG VIAL IVP SCH (21:06)
[2022-11-10 22:24] LABS: Sodium 128 mmol/L (136-145)
[2022-11-10 22:58] VITALS: BMI 25.7
[2022-11-10] MEDS ORDERED: Ipratropium/Albuterol 3 ML NEB NEB PRN (23:42)
[2022-11-10] MEDS ORDERED: Ibuprofen 400 MG TAB PO SCH (23:45)
[2022-11-10] MEDS: Azithromycin 500 MG in Sodium Chloride 0.9% 250 ML 250 ML IVPB SCH (23:55)
[2022-11-11] MEDS: Ipratropium/Albuterol 3 ML NEB NEB SCH ×4 (00:11→19:41)
[2022-11-11] MEDS: methylPREDNISolone Sod Succ 40 MG VIAL IVP SCH ×4 (02:43→20:10)
[2022-11-11] MEDS: Acetaminophen 325 MG TAB PO PRN ×4 (03:40→20:11)
[2022-11-11 05:34] LABS: #Monocytes 0.3 10x3/uL (0.0-1.1); #Neutrophils 3.9 10x3/uL (1.5-8.4); %Basophils 0.2 % (0.0-2.0); %Monocytes 6.4 % (0.0-10.0); %Neutrophils 74.8 % (40.0-75.0); Hemoglobin 13.6 g/dL (12.0-15.5); Mean Corpuscular HGB CONC 33.7 g/dL (32.0-36.0); Mean Corpuscular Hemoglobin 26.6 pg (27.0-33.0); Mean Corpuscular Volume 78.7 fl (81.6-98.3); Mean Platelet Volume 8.6 fl (7.4-10.4); Platelet Count 294 10x3/uL (150-450); RBC Distribution Width 14.5 % (11.5-14.5); Red Blood Cell (RBC) Count 5.12 10x6/uL (3.90-5.03); White Blood Cell (WBC) Count 5.2 10x3/uL (3.5-10.5)
[2022-11-11 05:48] LABS: Anion Gap 11 mmol/L (10-20); BUN (Urea Nitrogen) 11 mg/dL (9.8-20.1); Calc. Creatinine Clearance 110 mL/min (70-130); Calcium 8.8 mg/dL (7.8-10.44); Carbon Dioxide 29 mmol/L (23-31); Chloride 94 mmol/L (98-107); Estimated GFR 102; Glucose 158 mg/dL (80-115); Sodium 129 mmol/L (136-145)
[2022-11-11] MEDS ORDERED: Benzonatate 100 MG CAP PO PRN (10:27)
[2022-11-11 10:39] LABS: Sodium 129 mmol/L (136-145)
[2022-11-11] MEDS: Mometasone 100 MCG/Formoterol 5 MCG 120 PUFF INHALER INH SCH (11:25)
[2022-11-11] MEDS: Milk Of Magnesia 30 ML UDCUP PO PRN (13:55)
[2022-11-11] MEDS: Lorazepam 0.5 MG TAB PO PRN ×2 (16:06→20:11)
[2022-11-11 16:54] LABS: Sodium 129 mmol/L (136-145)
[2022-11-11] MEDS: Nicotine 14 MG PATCH TD SCH (16:57)
[2022-11-11] MEDS: cefTRIAXone\\ROCEPHIN 1 GM in Sodium Chloride 0.9% 100 ML IVPB SCH (20:10)
[2022-11-11] MEDS: Azithromycin 500 MG in Sodium Chloride 0.9% 250 ML 250 ML IVPB SCH (20:10)
[2022-11-11 22:52] LABS: Sodium 131 mmol/L (136-145)
[2022-11-12] MEDS: methylPREDNISolone Sod Succ 40 MG VIAL IVP SCH ×2 (01:09→08:05)
[2022-11-12] MEDS: Ipratropium/Albuterol 3 ML NEB NEB SCH ×4 (02:30→19:52)
[2022-11-12 05:18] LABS: #Eosinphils 0.1 10x3/uL (0.0-0.5); #Monocytes 0.9 10x3/uL (0.0-1.1); #Neutrophils 11.3 10x3/uL (1.5-8.4); %Basophils 0.2 % (0.0-2.0); %Eosinophils 0.9 % (0.0-6.0); %Lymphocytes 6.5 % (18.0-47.0); %Monocytes 6.7 % (0.0-10.0); %Neutrophils 85.2 % (40.0-75.0); Hemoglobin 13.8 g/dL (12.0-15.5); Mean Corpuscular HGB CONC 33.2 g/dL (32.0-36.0); Mean Corpuscular Hemoglobin 26.7 pg (27.0-33.0); Mean Corpuscular Volume 80.5 fl (81.6-98.3); Platelet Count 320 10x3/uL (150-450); RBC Distribution Width 14.6 % (11.5-14.5); Red Blood Cell (RBC) Count 5.17 10x6/uL (3.90-5.03); White Blood Cell (WBC) Count 13.3 10x3/uL (3.5-10.5)
[2022-11-12 05:26] LABS: Anion Gap 12 mmol/L (10-20); BUN (Urea Nitrogen) 11 mg/dL (9.8-20.1); Calc. Creatinine Clearance 100 mL/min (70-130); Calcium 8.9 mg/dL (7.8-10.44); Carbon Dioxide 35 mmol/L (23-31); Chloride 92 mmol/L (98-107); Estimated GFR 100; Glucose 142 mg/dL (80-115); Sodium 134 mmol/L (136-145)
[2022-11-12] MEDS: Mometasone 100 MCG/Formoterol 5 MCG 120 PUFF INHALER INH SCH ×2 (07:22→20:01)
[2022-11-12] MEDS: Acetaminophen 325 MG TAB PO PRN ×2 (08:05→23:43)
[2022-11-12] MEDS: Lorazepam 0.5 MG TAB PO PRN ×2 (08:06→20:31)
[2022-11-12] MEDS: Fluticasone Propionate Nasal Spray 16 gm Bottle NASAL SCH (09:00)
[2022-11-12] MEDS: Nicotine 14 MG PATCH TD SCH (18:56)
[2022-11-12] MEDS: cefTRIAXone\\ROCEPHIN 1 GM in Sodium Chloride 0.9% 100 ML IVPB SCH ×2 (20:16→20:31)
[2022-11-12] MEDS: Sodium Chloride 0.65% Nasal 44 ML BOT EA NARE PRN (20:50)
[2022-11-12] MEDS: Azithromycin 500 MG in Sodium Chloride 0.9% 250 ML 250 ML IVPB SCH (21:44)
[2022-11-13] MEDS: Ipratropium/Albuterol 3 ML NEB NEB SCH ×4 (01:33→20:03)
[2022-11-13 04:57] LABS: #Monocytes 1.7 10x3/uL (0.0-1.1); #Neutrophils 10.2 10x3/uL (1.5-8.4); %Basophils 0.2 % (0.0-2.0); %Lymphocytes 18.6 % (18.0-47.0); %Monocytes 11.3 % (0.0-10.0); %Neutrophils 69.5 % (40.0-75.0); Hemoglobin 14.2 g/dL (12.0-15.5); Mean Corpuscular HGB CONC 33.2 g/dL (32.0-36.0); Mean Corpuscular Hemoglobin 26.9 pg (27.0-33.0); Mean Corpuscular Volume 81.1 fl (81.6-98.3); Platelet Count 349 10x3/uL (150-450); RBC Distribution Width 14.5 % (11.5-14.5); Red Blood Cell (RBC) Count 5.28 10x6/uL (3.90-5.03); White Blood Cell (WBC) Count 14.7 10x3/uL (3.5-10.5)
[2022-11-13 05:15] LABS: Anion Gap 10 mmol/L (10-20); BUN (Urea Nitrogen) 21 mg/dL (9.8-20.1); Calc. Creatinine Clearance 104 mL/min (70-130); Calcium 8.7 mg/dL (7.8-10.44); Carbon Dioxide 35 mmol/L (23-31); Chloride 91 mmol/L (98-107); Estimated GFR 100; Glucose 85 mg/dL (80-115); Sodium 132 mmol/L (136-145)
[2022-11-13] MEDS: Mometasone 100 MCG/Formoterol 5 MCG 120 PUFF INHALER INH SCH ×2 (07:18→20:04)
[2022-11-13] MEDS: Lorazepam 0.5 MG TAB PO PRN ×3 (07:52→19:44)
[2022-11-13] MEDS: methylPREDNISolone Sod Succ 40 MG VIAL IVP SCH (07:54)
[2022-11-13] MEDS: Fluticasone Propionate Nasal Spray 16 gm Bottle NASAL SCH (07:54)
[2022-11-13] MEDS: Nicotine 14 MG PATCH TD SCH (19:43)
[2022-11-13] MEDS: cefTRIAXone\\ROCEPHIN 1 GM in Sodium Chloride 0.9% 100 ML IVPB SCH (20:54)
[2022-11-13] MEDS: Azithromycin 500 MG in Sodium Chloride 0.9% 250 ML 250 ML IVPB SCH (20:55)
[2022-11-14] MEDS: Ipratropium/Albuterol 3 ML NEB NEB SCH ×4 (00:48→20:04)
[2022-11-14] MEDS: Lorazepam 0.5 MG TAB PO PRN ×5 (01:03→19:32)
[2022-11-14 04:38] LABS: #Monocytes 1.4 10x3/uL (0.0-1.1); #Neutrophils 5.3 10x3/uL (1.5-8.4); %Basophils 0.1 % (0.0-2.0); %Eosinophils 0.1 % (0.0-6.0); %Lymphocytes 31.4 % (18.0-47.0); %Monocytes 14.1 % (0.0-10.0); %Neutrophils 54.2 % (40.0-75.0); Hemoglobin 15.2 g/dL (12.0-15.5); Mean Corpuscular HGB CONC 33.3 g/dL (32.0-36.0); Mean Corpuscular Hemoglobin 26.7 pg (27.0-33.0); Mean Corpuscular Volume 80.2 fl (81.6-98.3); Mean Platelet Volume 8.7 fl (7.4-10.4); Platelet Count 326 10x3/uL (150-450); RBC Distribution Width 14.4 % (11.5-14.5); White Blood Cell (WBC) Count 9.7 10x3/uL (3.5-10.5)
[2022-11-14 04:56] LABS: Anion Gap 11 mmol/L (10-20); BUN (Urea Nitrogen) 17 mg/dL (9.8-20.1); Calc. Creatinine Clearance 112 mL/min (70-130); Calcium 8.8 mg/dL (7.8-10.44); Carbon Dioxide 33 mmol/L (23-31); Chloride 93 mmol/L (98-107); Estimated GFR 102; Glucose 87 mg/dL (80-115); Potassium 4.1 mmol/L (3.5-5.1); Sodium 133 mmol/L (136-145)
[2022-11-14] MEDS: Fluticasone Propionate Nasal Spray 16 gm Bottle NASAL SCH (05:35)
[2022-11-14] MEDS: Milk Of Magnesia 30 ML UDCUP PO PRN (05:35)
[2022-11-14] MEDS: Sodium Chloride 0.65% Nasal 44 ML BOT EA NARE PRN (05:36)
[2022-11-14] MEDS: Mometasone 100 MCG/Formoterol 5 MCG 120 PUFF INHALER INH SCH ×2 (07:18→20:04)
[2022-11-14] MEDS: methylPREDNISolone Sod Succ 40 MG VIAL IVP SCH (10:01)
[2022-11-14] MEDS: Acetaminophen 325 MG TAB PO PRN (13:18)
[2022-11-14] MEDS ORDERED: Ipratropium/Albuterol 3 ML NEB NEB PRN (14:02)
[2022-11-14] MEDS: Nicotine 14 MG PATCH TD SCH (18:38)
[2022-11-14] MEDS: Budesonide 0.5 MG/2 ML NEB NEB SCH (20:04)
[2022-11-14] MEDS: Cefepime 1 GM in Sodium Chloride 0.9% 100 ML IVPB SCH (21:09)
[2022-11-15] MEDS: Lorazepam 0.5 MG TAB PO PRN ×5 (00:09→21:30)
[2022-11-15] MEDS: Ipratropium/Albuterol 3 ML NEB NEB SCH ×4 (02:03→19:50)
[2022-11-15 04:06] LABS: #Monocytes 1.5 10x3/uL (0.0-1.1); #Neutrophils 5.5 10x3/uL (1.5-8.4); %Basophils 0.2 % (0.0-2.0); %Eosinophils 0.1 % (0.0-6.0); %Lymphocytes 34.6 % (18.0-47.0); %Monocytes 13.8 % (0.0-10.0); Hemoglobin 15.3 g/dL (12.0-15.5); Mean Corpuscular HGB CONC 32.8 g/dL (32.0-36.0); Mean Corpuscular Hemoglobin 26.4 pg (27.0-33.0); Mean Corpuscular Volume 80.5 fl (81.6-98.3); Mean Platelet Volume 8.6 fl (7.4-10.4); Platelet Count 351 10x3/uL (150-450); RBC Distribution Width 14.3 % (11.5-14.5); Red Blood Cell (RBC) Count 5.79 10x6/uL (3.90-5.03); White Blood Cell (WBC) Count 10.7 10x3/uL (3.5-10.5)
[2022-11-15 04:19] LABS: Anion Gap 10 mmol/L (10-20); BUN (Urea Nitrogen) 19 mg/dL (9.8-20.1); Calc. Creatinine Clearance 102 mL/min (70-130); Calcium 8.9 mg/dL (7.8-10.44); Carbon Dioxide 33 mmol/L (23-31); Chloride 94 mmol/L (98-107); Estimated GFR 100; Glucose 80 mg/dL (80-115); Potassium 4.4 mmol/L (3.5-5.1); Sodium 133 mmol/L (136-145)
[2022-11-15] MEDS: Budesonide 0.5 MG/2 ML NEB NEB SCH ×2 (07:25→19:45)
[2022-11-15] MEDS: Mometasone 100 MCG/Formoterol 5 MCG 120 PUFF INHALER INH SCH ×2 (07:32→18:30)
[2022-11-15] MEDS: Acetaminophen 325 MG TAB PO PRN (08:30)
[2022-11-15] MEDS: Cefepime 1 GM in Sodium Chloride 0.9% 100 ML IVPB SCH ×2 (08:31→21:30)
[2022-11-15] MEDS: Fluticasone Propionate Nasal Spray 16 gm Bottle NASAL SCH (08:31)
[2022-11-15] MEDS: methylPREDNISolone Sod Succ 40 MG VIAL IVP SCH (08:31)
[2022-11-15] MEDS: Nicotine 14 MG PATCH TD SCH (19:31)
[2022-11-16] MEDS: Ipratropium/Albuterol 3 ML NEB NEB SCH ×4 (01:35→19:35)
[2022-11-16] MEDS: Lorazepam 0.5 MG TAB PO PRN ×4 (02:15→20:41)
[2022-11-16] MEDS: Budesonide 0.5 MG/2 ML NEB NEB SCH ×2 (07:28→19:38)
[2022-11-16] MEDS: Mometasone 100 MCG/Formoterol 5 MCG 120 PUFF INHALER INH SCH (07:30)
[2022-11-16] MEDS: Cefepime 1 GM in Sodium Chloride 0.9% 100 ML IVPB SCH ×2 (08:31→20:41)
[2022-11-16] MEDS: Fluticasone Propionate Nasal Spray 16 gm Bottle NASAL SCH (08:31)
[2022-11-16] MEDS: methylPREDNISolone Sod Succ 40 MG VIAL IVP SCH ×3 (08:31→20:42)
[2022-11-16] MEDS: Milk Of Magnesia 30 ML UDCUP PO PRN (08:31)
[2022-11-16] MEDS: Nicotine 14 MG PATCH TD SCH (17:42)
[2022-11-17] MEDS: Lorazepam 0.5 MG TAB PO PRN ×5 (01:36→21:05)
[2022-11-17] MEDS: Ipratropium/Albuterol 3 ML NEB NEB SCH ×4 (01:38→20:56)
[2022-11-17] MEDS: methylPREDNISolone Sod Succ 40 MG VIAL IVP SCH ×3 (05:29→21:04)
[2022-11-17] MEDS: Budesonide 0.5 MG/2 ML NEB NEB SCH ×2 (07:48→20:57)
[2022-11-17] MEDS: Cefepime 1 GM in Sodium Chloride 0.9% 100 ML IVPB SCH ×2 (08:05→21:03)
[2022-11-17] MEDS: Fluticasone Propionate Nasal Spray 16 gm Bottle NASAL SCH (08:05)
[2022-11-17] MEDS: Nicotine 14 MG PATCH TD SCH (19:31)
[2022-11-18] MEDS: Ipratropium/Albuterol 3 ML NEB NEB SCH ×4 (02:29→19:16)
[2022-11-18] MEDS: methylPREDNISolone Sod Succ 40 MG VIAL IVP SCH ×3 (05:59→21:30)
[2022-11-18] MEDS: Budesonide 0.5 MG/2 ML NEB NEB SCH ×2 (06:58→19:23)
[2022-11-18] MEDS: Cefepime 1 GM in Sodium Chloride 0.9% 100 ML IVPB SCH (08:32)
[2022-11-18] MEDS: Lorazepam 0.5 MG TAB PO PRN ×4 (08:33→21:28)
[2022-11-18] MEDS ORDERED: Cefdinir 300 MG CAP PO SCH ×3 (09:30→21:00)
[2022-11-18] MEDS: Fluticasone Propionate Nasal Spray 16 gm Bottle NASAL SCH (12:33)
[2022-11-18] MEDS: Nicotine 14 MG PATCH TD SCH (21:26)
[2022-11-19] MEDS: Lorazepam 0.5 MG TAB PO PRN ×3 (01:38→10:21)
[2022-11-19] MEDS: Ipratropium/Albuterol 3 ML NEB NEB SCH ×2 (01:41→06:50)
[2022-11-19] MEDS: methylPREDNISolone Sod Succ 40 MG VIAL IVP SCH (06:17)
[2022-11-19] MEDS: Budesonide 0.5 MG/2 ML NEB NEB SCH (06:58)
[2022-11-19] MEDS: Fluticasone Propionate Nasal Spray 16 gm Bottle NASAL SCH (08:58)
[2022-11-19] MEDS ORDERED: Cefdinir 300 MG CAP PO SCH (09:00)
[2022-11-19 12:45] VITALS: BP 144/94; TEMP 97.6
== END 2022-11-19 12:45 | disposition home or self-care (01) | DRG 189 ==
LOC: CSHERS 12:49 → CSHERHOLD 19:20 → CSHTELE 22:13
PROVIDERS: ADMIT Emergency Medicine; ATTEND Family Medicine
DX: J96.21 Acute and chronic respiratory failure with hypoxia (principal); J44.1 Chronic obstructive pulmonary disease with (acute) exacerbation; E87.1 Hypo-osmolality and hyponatremia; J45.909 Unspecified asthma, uncomplicated; F17.210 Nicotine dependence, cigarettes, uncomplicated; Z20.822 Contact with and (suspected) exposure to COVID-19; Z88.8 Allergy status to other drugs, medicaments and biological substances; Z79.51 Long term (current) use of inhaled steroids
CPT/HCPCS: 36415; 71045; 71046; 80048; 80053; 83880; 83930; 83935; 84300; 84484; 84540; 84560; 85025; 85379; 87070; 87205; 87811; 93005; 94640; 94664; 94760; 96374; 96375; J0456; J0692; J0696; J1650; J2405; J2920; J2930; J3475; J3490; J7050; J7620; J7626

== ENCOUNTER 2024-10-07 08:02 | Emergency (ER) | payer MEDICARE ==
[2024-10-07] MEDS ORDERED: Cefepime 2 GM VIAL ONE (08:18)
[2024-10-07] MEDS ORDERED: Ipratropium/Albuterol 3 ML NEB ONE ×2 (08:54→10:13)
[2024-10-07 08:55] LABS: Actual Bicarbonate (HCO3v) 27.3 mEq/L (22-28); Analyzer IN Cardio CS ER; Base Excess -2.4 mEq/L (-2 - +2); Calcium, Ionized (venous) 1.05 mmol/L (1.16-1.32); Chloride (VBG) 92 mmol/L (98-106); Critical Notified By: S. CREAMER, RRT; Hematocrit-VBG 49 % (36.0-47.0); Hemoglobin (Hb) 16.7 g/dL (11.7-16.1); Potassium (VBG) 4.13 mmol/L (3.70-5.30); Puncture Site Other Site; RapidComm Collect By lab; Sodium 128 mmol/L (133-146); pH (venous) 7.221 (7.32-7.43)
[2024-10-07 08:57] LABS: #Basophils 0.03 10x3/uL (0.0-0.2); #Monocytes 1.15 10x3/uL (0.0-1.1); #Neutrophils 7.96 10x3/uL (1.5-8.4); %Basophils 0.3 % (0.0-2.0); %Lymphocytes 23.4 % (18.0-47.0); %Monocytes 9.6 % (0.0-10.0); %Neutrophils 66.4 % (40.0-75.0); Hematocrit 48.8 % (34.9-44.5); Hemoglobin 15.4 g/dL (12.0-15.5); Mean Corpuscular HGB CONC 31.6 g/dL (32.0-36.0); Mean Corpuscular Hemoglobin 25.9 pg (27.0-33.0); Mean Corpuscular Volume 82.2 fL (81.6-98.3); Mean Platelet Volume 8.7 fL (7.4-10.4); Platelet Count 267 10x3/uL (150-450); RBC Distribution Width 14.1 % (11.5-14.5); Red Blood Cell (RBC) Count 5.94 10x6/uL (3.90-5.03)
[2024-10-07 09:02] LABS: ALT (SGPT) 10 U/L (8-55); AST (SGOT) 16 U/L (5-34); Albumin 3.3 g/dL (3.4-4.8); Alkaline Phosphatase 70 U/L (40-110); Anion Gap 14 mmol/L (10-20); BUN (Urea Nitrogen) 7 mg/dL (9.8-20.1); Bilirubin, Total 0.5 mg/dL (0.2-1.2); Calc. Creatinine Clearance 0 mL/min (70-130); Calcium 8.3 mg/dL (7.8-10.44); Carbon Dioxide 25 mmol/L (23-31); Chloride 93 mmol/L (98-107); Estimated GFR 102; Glucose 134 mg/dL (80-115); Magnesium 1.6 mg/dL (1.6-2.6); Potassium 4.2 mmol/L (3.5-5.1); Protein, Total 6.3 g/dL (5.8-8.1); Sodium 128 mmol/L (136-145)
[2024-10-07 09:06] LABS: Troponin I Less than 0.010 ng/mL (< 0.028)
[2024-10-07] MEDS ORDERED: methylPREDNISolone Sod Succ/PF 125 MG/2 ML VIAL ONE (09:10)
[2024-10-07 10:32] LABS: Bilirubin Neg (Negative); Blood, Urine Negative (Negative); Clarity Clear (Clear); Glucose, Urine (Dipstick) Normal (Negative); Ketone, Urine 5 mg/dL (Negative); Leukocyte Negative (Negative); Nitrite Negative (Negative); Protein, Urine (Dipstick) Negative (Neg-Trace); Specific Gravity, Urine 1.015 (1.005-1.030); Urobilinogen Normal mg/dL (Less than 2)
[2024-10-07 10:56] LABS: Bacteria/HPF Rare-Few HPF (None Seen); CAUTI Indications for Culture Alt mental st,lethar; RBC/HPF None Seen HPF (0-3); Squamous Epithelial 0-3 HPF (0-3); WBC/HPF 0-3 HPF (0-3)
[2024-10-07 10:58] LABS: Urine Culture Reflex No No
[2024-10-07 12:01] LABS: Analyzer IN Cardio CS ER; Base Excess -3.7 mEq/L (-2 - +2); Calcium, Ionized (venous) 1.01 mmol/L (1.16-1.32); Chloride (VBG) 92 mmol/L (98-106); Critical Notified By: S. CREAMER, RRT; Hematocrit-VBG 49 % (36.0-47.0); Hemoglobin (Hb) 16.8 g/dL (11.7-16.1); Potassium (VBG) 4.29 mmol/L (3.70-5.30); Puncture Site Other Site; RapidComm Collect By lab; Sodium 128 mmol/L (133-146); pH (venous) 7.176 (7.32-7.43)
[2024-10-07 12:02] LABS: Actual Bicarbonate (HCO3v) 24.1 mEq/L (22-28); Analyzer IN Cardio CS ER; Base Excess -4.2 mEq/L (-2 - +2); Chloride (VBG) 94 mmol/L (98-106); Critical Notified By: S. CREAMER, RRT; Hematocrit-VBG 46 % (36.0-47.0); Hemoglobin (Hb) 15.5 g/dL (11.7-16.1); Puncture Site Other Site; RapidComm Collect By LAB; Sodium 127 mmol/L (133-146); pH (venous) 7.241 (7.32-7.43)
== END 2024-10-07 14:08 | disposition short-term general hospital (02) ==
LOC: CSHERS 08:02
DX: J44.1 Chronic obstructive pulmonary disease with (acute) exacerbation (principal); F17.210 Nicotine dependence, cigarettes, uncomplicated
CPT/HCPCS: 71275; 80053; 81001; 82805; 83605; 83735; 83880; 84145; 84484; 85025; 87040; 87428; 93005; 94640 ×2; 94660; J0692; J2919; 36415; J7620